=== PATIENT | female | born 1985 | race Caucasian/White ===

== ENCOUNTER 2017-03-09 09:49 | Emergency (ER) | payer MEDICAID ==
[2017-03-09 09:57] VITALS: TEMP 97.9
[2017-03-09] MEDS ORDERED: ALBUTEROL 3 ML DEYVIAL IH ONE (10:37)
[2017-03-09] MEDS ORDERED: ALBUTEROL 3 ML DEYVIAL ONE (10:38)
--- NOTE | 2017-03-09 10:39 | EDPHY ---
H & P Time Seen by Provider: 03/09/17 10:12 HPI/ROS: CHIEF COMPLAINT: Cough HISTORY OF PRESENT ILLNESS: 31-year-old female presents to the emergency department by private vehicle with productive cough for last 5 days. Patient initially had sore throat and has had some nasal congestion and rhinorrhea. She has no known fevers or chills. No recent travel. No known ill contacts. No history of pneumonia. She has been taking some herbal cough medication without relief. She denies feeling short of breath. She denies specifically pleuritic chest pain. She denies abdominal pain or vomiting. REVIEW OF SYSTEMS: Constitutional: No fever, no chills. Eyes: No double or blurry vision. ENT: No sore throat. Respiratory: Cough as above. no shortness of breath. Cardiac: No chest pain. Gastrointestinal: No abdominal pain, vomiting or diarrhea. Genitourinary: No dysuria. Musculoskeletal: No neck or back pain. Skin: No rashes. Neurological: No headache. Past Medical/Surgical History: Negative Social History: and lives in [place] Smoking Status: Never smoked Physical Exam: General Appearance: Alert, no distress. Afebrile. 97% on room air. No respiratory distress. Eyes: Pupils equal and round. Extraocular motions are all intact. ENT: Mouth: Mucous membranes moist. Respiratory: No wheezing, rhonchi, or rales, lungs are clear to auscultation. Cardiovascular: Regular rate and rhythm. Gastrointestinal: Abdomen is soft and nontender, no masses, no rebound or guarding, bowel sounds normal. Neurological: Alert and oriented x 3, cranial nerves II through XII grossly intact Skin: Warm and dry, no rashes. Musculoskeletal: Nontender to palpate along the cervical, thoracic or lumbar spine. Neck is supple. Extremities: Full range of motion and no peripheral edema. Psychiatric: Patient is oriented X 3, there is no agitation. Constitutional: Initial Vital Signs Temperature (C) 36.6 C 03/09/17 09:50 Heart Rate 74 03/09/17 09:50 Respiratory Rate 18 03/09/17 09:50 Blood Pressure 116/68 03/09/17 09:50 O2 Sat (%) 97 03/09/17 09:50 O2 Delivery Mode Room Air Allergies/Adverse Reactions: No Known Allergies Allergy (Verified 03/09/17 09:54) Home Medications: Medication Instructions Recorded NK [No Known Home Meds] 03/09/17 Medical Decision Making ED Course/Re-evaluation: A 31-year-old female presents to the emergency department with ongoing cough. She has no history of pneumonia. No known ill contacts or recent travel. No fevers or chills. Patient has an otherwise normal examination. She was given an albuterol nebulizer however this really only made her feel shaky. She had no change in her symptoms. She denies pleuritic chest pain. I doubt pulmonary embolism. She has had respiratory symptoms for the last few days which I feel is likely viral. This was discussed with the patient. She has not taken any [id number] medications other than some homeopathic cough medication. She was encouraged to try long-acting dextromethorphan such as Delsym. She was also encouraged to return if she developed shortness of breath, worsening pain or if she felt worse in any way. Differential Diagnosis: Including but not limited to viral upper respiratory infection, bronchitis, pneumonia, influenza - Data Points Medications Given: Discontinued Medications Albuterol (Proventil Neb) 3 ml EDNOW ONE Stop: 03/09/17 10:38 Last Admin: 03/09/17 11:04 Dose: 3 ml Departure - Departure Disposition: Home, Routine, Self-Care Clinical Impression: Upper respiratory infection Condition: Good Instructions: Upper Respiratory Infection (ED) Additional Instructions: Delsym, long-acting dextromethorphan, at bedtime to help suppress your cough. Return to the emergency department if you develop shortness of breath, fever, or if you feel worse in any way. Referrals: AMARA TABOR [Primary Care Provider] - 2-3 days, if not improved Stand Alone Forms: Work Excuse
[2017-03-09 11:58] VITALS: BP 101/69; PULSE 75; RESP 12; O2SAT 96
== END 2017-03-09 11:58 | disposition home or self-care (01) ==
DX: J06.9 Acute upper respiratory infection, unspecified (principal)

== ENCOUNTER 2018-09-25 04:25 | Emergency (ER) | payer MEDICAID ==
[2018-09-25] MEDS ORDERED: NS 1,000 ML IV ONE ×2 (04:35→08:51)
--- NOTE | 2018-09-25 04:41 | EDPHY ---
H & P Source: Patient, EMS - Medical/Surgical History Hx Asthma: No Hx Chronic Respiratory Disease: No Hx Diabetes: No Hx Cardiac Disease: No Hx Renal Disease: No Hx Cirrhosis: No Hx Alcoholism: No Hx HIV/AIDS: No Hx Splenectomy or Spleen Trauma: No Other PMH: 1ST DEGREE AV BLOCK, SYNCOPE - Social History Smoking Status: Never smoked Time Seen by Provider: 09/25/18 04:36 HPI/ROS: HPI CHIEF COMPLAINT: Left-sided sharp stabbing chest pain when breathing in HISTORY OF PRESENT ILLNESS: 32-year-old female otherwise healthy, suffers from orthostatic hypotension, and is currently 12 weeks with their 2nd child. She presents emergency room by EMS for severe 10/10 left-sided pleuritic sharp stabbing chest pain that only occurs when she takes a deep breath in. This woke her from sleep. She was unable to take a deep breath in had to take shallow breaths every time she would take a deep breath and we gave her sharp stabbing pain. She states she has had this multiple times before but never this severe never lasting this long. She states she called 911 at 2:30 a.m. It eventually resolved around 3:40 a.m.. She states approximately 70 min of this. She arrives to the emergency room now at 4:30 a.m. [place] she denies any pain. Denies chest pain or shortness of breath denies pleuritic pain. States resolved while in the ambulance and she was not given any medications. She denies a history of DVT or PE. She does report to me that she has been pretty much bed rest for the past 12 weeks given that she has been and suffers from hypotension. She states that while she is her blood pressure is usually running in the 90 systolic. This causes her get very lightheaded sometimes pass out when she moves. So she has been in bed for the past 12 weeks. She reports that she is followed by the midwives at [facility]. They are aware of her low blood pressure during . She also reports to me that she has had extensive cardiovascular workup in the past for orthostatic hypotension and hypotension leading to syncope. She has no history of DVT or PE. She does have risk factors for PE given that she is has been bed rest for approximately 12 weeks. She has placed herself on bed rest. This was not prescribed. She states the pain woke her from sleep very severe 10/10 pleuritic only happening with deep inspiration. Denies cough or hemoptysis. Denies fever. Denies abdominal pain. Symptoms resolved prior to arrival Past Medical History: Orthostatic hypertension, syncope Past Surgical History: No recent surgery Social History: Denies drugs alcohol tobacco. [place] [facility] Family History: Noncontributory ROS REVIEW OF SYSTEMS: 10 Systems were reviewed and negative with the exception of the elements mentioned in the history of present illness. Exam Constitutional appears well nontoxic no acute distress triage nursing summary reviewed, vital signs reviewed, awake/alert. Vital signs are stable upon arrival Eyes normal conjunctivae and sclera, EOMI, PERRLA. HENT normal inspection, atraumatic, moist mucus membranes, no epistaxis, neck supple/ no meningismus, no raccoon eyes. Respiratory clear to auscultation bilaterally, normal breath sounds, no respiratory distress, no wheezing. Cardiovascular rate normal, regular rhythm, no murmur, no edema, distal pulses normal. Gastrointestinal soft, non-tender, no rebound, no guarding, normal bowel sounds, no distension, no pulsatile mass. Genitourinary no CVA tenderness. Musculoskeletal no midline vertebral tenderness, full range of motion, no calf swelling, no tenderness of extremities, no meningismus, good pulses, neurovascularly intact. Skin pink, warm, & dry, no rash, skin atraumatic. Neurologic awake, alert and oriented x 3, AAOx3, moves all 4 extremities equally, motor intact, sensory intact, CN II-XII intact, normal cerebellar, normal vision, normal speech. Psychiatric normal mood/affect. Heme/Lymph/Immune no lymphadenopathy. Differential Diagnosis: Differential diagnosis includes but is not limited to: ACS, atypical chest pain, pneumothorax, pneumonia, pulmonary embolism, aortic dissection, congestive heart failure, tumor, musculoskeletal pain, esophageal pain, GERD, peptic ulcer disease, pancreatitis Medical Decision Making: Plan for this patient she is 12 weeks , with left-sided pleuritic pain very severe now resolved. She has been bed rest. She will need workup for pulmonary embolism and pneumothorax. ACS. Plan for this patient EKG, troponin, chest x-ray, cardiac rehabilitation program director, IV fluids. Pain is resolved prior to arrival. Check D-dimer. Re-evaluation: EKG interpretation by me on record in [employer] system. Impression time of EKG 4:44 a.m. Sinus rhythm rate of 64, OH interval 211 first-degree AV block otherwise no signs of acute ischemia no ST elevation no ST depression no significant T-wave abnormalities. When compared to patient's old EKG dated 05/16/2015 similar morphology. No acute changes. Troponin 0.01 D-dimer negative. The chest x-ray negative for acute cardiopulmonary disease. Image interpreted by myself. No evidence of pneumothorax visualized. The patient's current vital signs heart rate 16, blood pressure 105/68 98% room air sat. The patient has a negative D-dimer negative troponin in a nonischemic EKG. She has not had a return of chest pain or shortness of breath or pleuritic pain. It Is noted her dimer was negative Troponin negative EKG unchanged from previous EKGs without any acute ischemia does have a first- degree AV block. I do recommend she follows up with her OBGYN. Urinalysis still pending. heart tones documented 126. 7:08 a.m. Patient continues to rest comfortably. No chest pain is not any chest pain or shortness of breath or pleuritic pain here. If 2nd EKG and 2nd troponin negative patient can be safely discharged. Return precautions discussed the patient she understands 0700: Signed over to Dr. Egan, follow-up repeat EKG and repeat troponin. If these are normal I believe the patient be safely discharged home. (Keith Flores) Constitutional: Initial Vital Signs Temperature (C) 37.0 C 09/25/18 04:25 Heart Rate 62 09/25/18 04:25 Respiratory Rate 18 09/25/18 04:25 Blood Pressure 105/68 09/25/18 04:25 O2 Sat (%) 98 09/25/18 04:25 O2 Delivery Mode Room Air Allergies/Adverse Reactions: No Known Allergies Allergy (Verified 09/25/18 04:51) Home Medications: Medication Instructions Recorded NK [No Known Home Meds] 03/09/17 Medical Decision Making - Diagnostics Imaging Results: Imaging Impressions Chest X-Ray 09/25/18 04:35 Impression: Normal. Obstetrics Ultrasound 09/25/18 08:46 Impression: There is a single viable intrauterine gestation with a size concordant with menstrual dating. Because the patient will be 33 years old at the time of delivery, and therefore advanced maternal age, it may be worthwhile to consider consultation with the [facility] for assessment of nuchal translucency (between 11 and 13 weeks gestation). Findings were discussed with FLORENCE LEONE MD at 9:44, on 09/25/2018. ED Course/Re-evaluation: 0 700: Patient is signed out to me at change of shift by Dr. Flores. He states the plan is to review the repeat EKG and troponin at 7:40 a.m.. If they are unchanged and normal the patient should be discharged home. EKG shows normal sinus rhythm, normal rate, normal axis, prolonged OH interval. There are no ST or T-wave abnormalities. Unchanged from previous EKG Troponin negative I discussed the results with the patient. I answered all her questions. Patient was concerned because her systolic blood pressure was 92. She states she is feeling mildly dizzy. She states that she has been feeling dizzy for the past few weeks. She reports that she has been on bed rest because she cannot get out of bed due to her lightheadedness. "I am not able to drive." She feels as though she might faint. Patient states she does not feel safe being discharged home as she still feels lightheaded. Orthostatic vital signs were obtained. Patient was given a 2nd L of normal saline. Ultrasound was ordered. Patient's blood pressure improved when standing. Patient's heart rate did not elevate with standing. Patient was given some food. Ultrasound: 1 IUP. This matches her dates of 11 weeks 2 days. Patient does have a corpus luteal cyst on the left. There is a small subchorionic hemorrhage. Heart rate is 160. I discussed the results with the patient. I answered all of her questions. She was feeling much better. She was discharged with close follow-up with her primary care doctor and machine clothing worker (Florence Leone) Differential Diagnosis: My differential includes but is not limited to dizziness, hypertension, electrolyte abnormality, sugar abnormality, ACS, acute UT, pulmonary embolus ( Florence Leone) - Data Points Laboratory Results: Laboratory Results 09/25/18 04:20 09/25/18 04:20 09/25/18 09/25/18 09/25/18 07:42 06:25 04:40 WBC RBC Hgb Hct MCV MCH MCHC RDW Plt Count MPV Neut % (Auto) Lymph % (Auto) [place] % (Auto) Eos % (Auto) Baso % (Auto) Nucleat RBC Rel Count Absolute Neuts (auto) Absolute Lymphs (auto) Absolute Monos (auto) Absolute Eos (auto) Absolute Basos (auto) Absolute Nucleated RBC Immature Gran % Immature Gran # D-Dimer Sodium Potassium Chloride Carbon Dioxide Anion Gap BUN Creatinine Estimated GFR Glucose Calcium Total Bilirubin Conjugated Bilirubin Unconjugated Bilirubin AST ALT Alkaline Phosphatase POC Troponin I 0.00 ng/mL ng/mL 0.01 ng/mL ng/mL (0.00-0.08) (0.00-0.08) NT-Pro-B Natriuret Pep Total Protein Albumin Lipase Urine Color YELLOW Urine Appearance HAZY Urine pH 7.0 (5.0-7.5) Ur Specific Harned 1.006 (1.002-1.030) Urine Protein NEGATIVE (NEGATIVE) Urine Ketones NEGATIVE (NEGATIVE) Urine Blood NEGATIVE (NEGATIVE) Urine Nitrate NEGATIVE (NEGATIVE) Urine Bilirubin NEGATIVE (NEGATIVE) Urine Urobilinogen NEGATIVE EU EU (0.2-1.0) Ur Leukocyte Esterase NEGATIVE (NEGATIVE) Urine Glucose NEGATIVE (NEGATIVE) 09/25/18 09/25/18 09/25/18 04:20 04:20 04:20 WBC 8.11 10^3/uL 10^3/uL (3.80-9.50) RBC 4.36 10^6/uL 10^6/uL (4.18-5.33) Hgb 13.8 g/dL g/dL (12.6-16.3) Hct 41.1 % % (38.0-47.0) MCV 94.3 fL fL (81.5-99.8) MCH 31.7 pg pg (27.9-34.1) MCHC 33.6 g/dL g/dL (32.4-36.7) RDW 12.2 % % (11.5-15.2) Plt Count 173 10^3/uL 10^3/uL (150-400) MPV 11.6 fL fL (8.7-11.7) Neut % (Auto) 63.9 % % (39.3-74.2) Lymph % (Auto) 24.3 % % (15.0-45.0) [place] % (Auto) 9.6 % % (4.5-13.0) Eos % (Auto) 1.0 % % (0.6-7.6) Baso % (Auto) 0.5 % % (0.3-1.7) Nucleat RBC Rel Count 0.0 % % (0.0-0.2) Absolute Neuts (auto) 5.18 10^3/uL 10^3/uL (1.70-6.50) Absolute Lymphs (auto) 1.97 10^3/uL 10^3/uL (1.00-3.00) Absolute Monos (auto) 0.78 10^3/uL 10^3/uL (0.30-0.80) Absolute Eos (auto) 0.08 10^3/uL 10^3/uL (0.03-0.40) Absolute Basos (auto) 0.04 10^3/uL 10^3/uL (0.02-0.10) Absolute Nucleated RBC 0.00 10^3/uL 10^3/uL (0-0.01) Immature Gran % 0.7 % % (0.0-1.1) Immature Gran # 0.06 10^3/uL 10^3/uL (0.00-0.10) D-Dimer 0.33 ug/mLFEU ug/mLFEU (0.00-0.50) Sodium 140 mEq/L mEq/L (135-145) Potassium 3.4 mEq/L L mEq/L (3.5-5.2) Chloride 108 mEq/L mEq/L (97-110) Carbon Dioxide 23 mEq/l mEq/l (22-31) Anion Gap 9 mEq/L mEq/L (6-14) BUN 11 mg/dL mg/dL (7-23) Creatinine 0.7 mg/dL mg/dL (0.6-1.0) Estimated GFR > 60 Glucose 76 mg/dL mg/dL (70-100) Calcium 9.1 mg/dL mg/dL (8.5-10.4) Total Bilirubin 0.2 mg/dL mg/dL (0.1-1.4) Conjugated Bilirubin 0.2 mg/dL mg/dL (0.0-0.5) Unconjugated Bilirubin 0.0 mg/dL mg/dL (0.0-1.1) AST 26 IU/L IU/L (14-46) ALT 16 IU/L IU/L (9-52) Alkaline Phosphatase 51 IU/L IU/L (38-126) POC Troponin I NT-Pro-B Natriuret Pep 90 pg/mL pg/mL (0-125) Total Protein 6.8 g/dL g/dL (6.3-8.2) Albumin 3.8 g/dL g/dL (3.5-5.0) Lipase 95 IU/L IU/L (23-300) Urine Color Urine Appearance Urine pH Ur Specific Harned Urine Protein Urine Ketones Urine Blood Urine Nitrate Urine Bilirubin Urine Urobilinogen Ur Leukocyte Esterase Urine Glucose Medications Given: Discontinued Medications Sodium Chloride (Ns) 1,000 mls @ 0 mls/hr IV EDNOW ONE; Wide Open PRN Reason: Protocol Stop: 09/25/18 04:36 Last Admin: 09/25/18 05:23 Dose: 1,000 mls Sodium Chloride (Ns) 1,000 mls @ 0 mls/hr IV EDNOW ONE; Wide Open PRN Reason: Protocol Stop: 09/25/18 08:52 Last Admin: 09/25/18 08:54 Dose: 1,000 mls Point of Care Test Results: Chemistry 09/25/18 09/25/18 07:42 04:40 POC Troponin I 0.00 ng/mL ng/mL 0.01 ng/mL ng/mL (0.00-0.08) (0.00-0.08) Departure - Departure Disposition: Home, Routine, Self-Care Clinical Impression: Pleurisy Condition: Good Instructions: Pleurisy (ED) Additional Instructions: 1. Please return to the emergency room if this gets worse. 2. Return if you have worsening pain shortness of breath not doing well questions or concerns 3. Take it easy over the next few days 4. Touch base with your master baker in OBGYN. Referrals: Ted Osman MD [Medical Doctor] - 5-7 days, if not improved
[2018-09-25 04:51] LABS: PLATELET COUNT 173 10^3/uL (150-400)
[2018-09-25 10:16] VITALS: BP 92/62
--- NOTE | 2018-09-25 14:34 | CPEKG ---
Test Reason : OPEN Blood Pressure : / mmHG Vent. Rate : 061 BPM Atrial Rate : 062 BPM P-R Int : 215 ms QRS Dur : 091 ms QT Int : 418 ms P-R-T Axes : 046 045 035 degrees QTc Int : 421 ms Sinus rhythm Prolonged NV interval Confirmed by Padmini Leone ([id number]) on 09/25/2018 2:33:38 PM Referred By: Confirmed By:Padmini Leone
--- NOTE | 2018-09-26 07:44 | CPEKG ---
Test Reason : OPEN Blood Pressure : / mmHG Vent. Rate : 064 BPM Atrial Rate : 064 BPM P-R Int : 211 ms QRS Dur : 089 ms QT Int : 393 ms P-R-T Axes : 050 027 016 degrees QTc Int : 406 ms Sinus rhythm Prolonged MA interval Confirmed by Keith Flores ([id number]) on 09/26/2018 7:44:17 AM Referred By: Confirmed By:Keith Flores
== END 2018-09-25 10:24 | disposition home or self-care (01) ==
LOC: EDUNIT#
DX: R09.1 Pleurisy (principal); O26.51 Maternal hypotension syndrome, first trimester; E86.9 Volume depletion, unspecified; Z3A.12 12 weeks gestation of pregnancy
CPT/HCPCS: 84484-ER

== ENCOUNTER → 2018-11-30 | Outpatient (CLI) | payer MEDICAID | LOC: FIMAGING 10:43 | PROVIDERS: ATTEND Advanced Practice Midwife | DX: O09.522 Supervision of elderly multigravida, second trimester (principal); Z3A.20 20 weeks gestation of pregnancy; Z83.79 Family history of other diseases of the digestive system ==